=== PATIENT | female | born 1985 | race Caucasian/White ===

== ENCOUNTER 2018-09-15 07:38 | Outpatient (RCR) | payer BC, SELFPAY ==
--- NOTE | 2018-09-15 08:49 | HMH.PTOPEV ---
PT Outpatient Evaluation Rehab PT Outpatient Evaluation Start: 09/15/18 08:02 Freq: Status: Active Protocol: Document 09/15/18 08:43 PHOCINTIA (Rec: 09/15/18 08:49 PHORNE [id number]) Electronically Signed By Neal Chicas, PT 09/15/18 08:43 Outpatient Therapy Subjective History Subjective History Pt is 32 yowf who presents with c/o left side low back pain x ~ 2 wks with some pain noted in the left LE to mid thigh distally. She reports she slipped in her garage and twisted to catch herself which resulted in her symptoms. She was prescribed muscle relaxers and anti-inflammatory meds which has helped her symptoms significantly. She reports increased pain with prolonged standing, but not constant and no numbness or tingling. PMH: none significant. Chief Complaint Pain Symptom Type Ache Sharp Dull Symptoms Relieved By Rest/Positioning Symptoms Aggravated By Standing Prior Functional Limitations None Current Functional Limitations Standing Symptom Description Intermittent Activity Dependent Level of pain today (0-10) 2 Pain scale - at its worst (0-10) 6 Lumbopelvic Eval Palapation tenderness left buttock tenderness Yes: left SI and piriformis Lumbar/Sacral Palpation Findings Tenderness Range of Motion Lumbar Spine ROM Reason Not Measured Within Functional Limits Manual Muscle Test Bilateral Knee Extension Strength Grade 5 Normal Knee Flexion Strength Grade 5 Normal Hip Flexion Strength Grade 5 Normal Hip Abduction Strength Grade 5 Normal Hip Adduction Strength Grade 5 Normal Hip External Rotation Strength Grade 5 Normal Hip Internal Rotation Strength Grade 5 Normal Hip Extension Strength Grade 5 Normal Ankle Dorsiflexion Strength Grade 5 Normal Gastronemius/Soleus Strength Grade 5 Normal DTR Rt Patellar 2+ Lt Patellar 2+ Rt Gastroc/Soleus 2+ Lt Gastroc/Soleus 2+ Special Tests Hip Scouring (Quadrant) Test Negative Left Negative Right Hip Keyur (MARTHA) Test Negative Left Negative Right Reverse Sciatic Nerve Tension Test Negative Righ
== END 2018-09-15 08:00 | disposition home or self-care (01) ==
LOC: PT 07:38
PROVIDERS: Visit Provider Family Medicine
DX: M54.9 Dorsalgia, unspecified (principal)
CPT/HCPCS: 97010; 97014; 97033; 97035; 97110; 97140; 97163; G0283

== ENCOUNTER → 2019-04-02 10:57 | Outpatient (CLI) | payer BC, SELFPAY ==
--- NOTE | 2019-04-02 11:13 | XR_ITS ---
EXAM: XR lumbar spine min 4V HISTORY: ITS.REASON: BACK STRAIN ORDERING PHYSICIAN: Belinda Murphy APRN PATIENT AGE: 33 years COMPARISON: None FINDINGS: Normal alignment. No fracture or dislocation. No lytic or blastic change. No significant degenerative change. The disc spaces are preserved. IMPRESSION: No acute finding
== END ==
PROVIDERS: PCP Nurse Practitioner Family; Visit Provider Nurse Practitioner Family
DX: S39.012A Strain of muscle, fascia and tendon of lower back, initial encounter (principal)
CPT/HCPCS: 72110

== ENCOUNTER 2019-04-17 14:00 | Outpatient (RCR) | payer BC, SELFPAY ==
--- NOTE | 2019-04-09 09:51 | HMH.PTOPEV ---
PT Outpatient Evaluation Rehab PT Outpatient Evaluation Start: 04/09/19 09:40 Freq: Status: Active Protocol: Document 04/09/19 09:41 PHOCINTIA (Rec: 04/09/19 09:50 PHORBRIDGETTE [id number]) Electronically Signed By Neal Chicas, PT 04/09/19 09:41 Outpatient Therapy Subjective History Subjective History Pt is 33 yowf who presents with c/o pain in left low back /posterior hip with radicular symptoms moving down the left LE to the knee distally. Pt had prior episode of similar symptoms ~ 8 mos ago which was completely resolved. She reports recently moving a mattress and box springs up a set of stairs which caused a slow, steady return of her symptoms which are also aggravated by the physical demands of her job. She reports no pain at rest, but pain is increased with prolonged walking and transfers after prolonged sitting. No significant PMH and X-rays of lumbar spine were negative for pathology. Chief Complaint Pain,Stiff Symptom Type Ache,Sharp,Stabbing,Burning, Shooting Symptoms Relieved By Rest/Positioning Symptoms Aggravated By Twisting,Walking Prior Functional Limitations None Current Functional Limitations Reaching,Walking Symptom Description Intermittent,Activity Dependent Level of pain today (0-10) 0 Pain scale - at its worst (0-10) 5 Lumbopelvic Eval Palapation tenderness left buttock tenderness Yes Lumbar/Sacral Palpation Findings Tenderness Lumbar/Sacral Palpation Overall Comment piriformis and left SI Range of Motion Lumbar Spine Active Flexion Range of 0-65 Motion (degrees) Lumbar Spine Active Extension Range of 0-20 Motion (degrees) Left Lumbar Spine Lateral Flexion Active 0-20 Range of Motion (degrees) Right Lumbar Spine Lateral Flexion 0-20 Active Range of Motion (degrees) Manual Muscle Test Bilateral Knee Extension Strength Grade 5 Normal Knee Flexion Strength Grade 5 Normal Hip Flexion Strength Grade 5 Normal Hip Abduction Strength Grade 5 Normal Hip Adduction Strength Grade 5 Normal Hip External Rotation Strength Grade 5 Normal Hip Internal Ro
== END 2019-04-17 14:05 | disposition home or self-care (01) ==
LOC: PT 14:00
PROVIDERS: Visit Provider Nurse Practitioner Family
DX: S39.012A Strain of muscle, fascia and tendon of lower back, initial encounter (principal)
CPT/HCPCS: 97010; 97014; 97035; 97110; 97140; 97163; G0283

== ENCOUNTER → 2020-06-12 07:37 | Outpatient (CLI) | payer BC, SELFPAY ==
--- NOTE | 2020-06-12 07:46 | US_ITS ---
PROCEDURE: US ABDOMEN LIMITED CLINICAL INDICATION: ELEVATED BILIRUBIN COMPARISON: No exams were available for comparison FINDINGS: PANCREAS: Unremarkable. No obvious mass or abnormal fluid collection. No ductal dilatation LIVER: No focal liver lesions demonstrated. Homogeneous echogenicity. No intrahepatic biliary ductal dilatation evident. There is appropriate direction of blood flow within a non dilated portal vein RIGHT KIDNEY: Unremarkable. Normal size and echogenicity. The right kidney measures 10.1 x 4.4 by 6.7 cm. No hydronephrosis GALLBLADDER: No gallstones, gallbladder wall thickening, pericholecystic fluid, or biliary dilatation. There is a small amount of biliary sludge seen. IMPRESSION: Small amount of biliary sludge otherwise unremarkable ultrasound abdomen limited Dictated by: Dr. Romero Saldana MD 06/12/2020 13:18 Dr. Romero Saldana MD in [place] 06/12/2020 13:18
== END ==
PROVIDERS: PCP Nurse Practitioner Family; Visit Provider Nurse Practitioner Family
DX: R17 Unspecified jaundice (principal)
CPT/HCPCS: 76705

== ENCOUNTER → 2021-01-07 12:30 | Outpatient (CLI) | payer BC, SELFPAY ==
[2021-01-07 13:11] LABS: Adenovirus,PCR Not Detected (NotDetected); Bordetella Pertussis Not Detected (NotDetected); Chlamydophila Pneumoniae, PCR Not Detected (NotDetected); Coronavirus 19, PCR Not Detected (NotDetected); Coronavirus 229E Not Detected (NotDetected); Coronavirus NL63 Not Detected (NotDetected); Coronavirus OC43 Not Detected (NotDetected); Coronovirus HKU1,PCR Not Detected (NotDetected); Human Metapneumovirus Not Detected (NotDetected); Influenza A, PCR Not Detected (NotDetected); Influenza AH1, 2009 Not Detected (NotDetected); Influenza AH1, PCR Not Detected (NotDetected); Influenza AH3,PCR Not Detected (NotDetected); Influenza B, PCR Not Detected (NotDetected); Mycoplasma Pneumoniae, PCR Not Detected (NotDetected); Parainfluenza 1, PCR Not Detected (NotDetected); Parainfluenza 2, PCR Not Detected (NotDetected); Parainfluenza 3, PCR Not Detected (NotDetected); Parainfluenza 4, PCR Not Detected (NotDetected); Respiratory Syncytial Virus Not Detected (NotDetected)
[2021-01-07 13:20] LABS: Basophils % 0.4 % (0.1-2.0); Eosinophils # 0.1 K/mm3 (0.0-0.4); Eosinophils % 0.8 % (0.1-12.0); Hematocrit 40.7 % (37.0-47.0); Hemoglobin 13.5 g/dL (12.2-16.2); Lymphocytes # 2.5 K/mm3 (0.7-4.5); Lymphocytes % 26.1 % (10-50); Mean Corpuscular HGB Conc 33.2 g/dL (31.8-35.4); Mean Corpuscular Hemoglobin 30.7 pg (27.0-31.2); Mean Corpuscular Volume 92.7 fl (81-99); Mean Platelet Volume 7.5 fl (7.4-10.4); Monocytes # 0.6 K/mm3 (0.1-1.0); Monocytes % 6.5 % (1.7-9.3); Neutrophils # 6.2 K/mm3 (1.8-7.8); Neutrophils % 66.2 % (37.0-80.0); Platelet Count 271 K/mm3 (142-424); Red Blood Count 4.39 M/mm3 (4.20-5.40); White Blood Count 9.4 K/mm3 (4.8-10.8)
[2021-01-07 19:29] LABS: Rhinovirus/Enterovirus Detected (NotDetected)
== END ==
PROVIDERS: PCP Nurse Practitioner Family; Visit Provider Nurse Practitioner Family
DX: Z20.822 Contact with and (suspected) exposure to COVID-19 (principal); B34.1 Enterovirus infection, unspecified
CPT/HCPCS: 36415; 85025; 87581; 87633; 87798

== ENCOUNTER → 2021-02-09 15:40 | Outpatient (CLI) | payer BC, SELFPAY ==
--- NOTE | 2021-02-09 15:43 | MR_ITS ---
PROCEDURE: MR LUMBAR SPINE WO CON CLINICAL INDICATION: ACUTE MIDLINE LOW BACK PAIN Lt sided LBP. Pain down lt leg to knee. Symptoms xyrs. No injury or trauma. COMPARISON: No exams were available for comparison TECHNIQUE: Standard multiplanar multiecho sequences are performed without contrast. 3-D MIP and myelographic images are also rendered and reviewed FINDINGS: There is normal alignment. There is straightening of the lumbar lordosis which may be due to patient positioning or muscle spasm. Spinal cord ends at the L1-L2 level. T12-L1, L1-L2, L2-L3, L3-L4, and L4-5 have an unremarkable appearance. L5-S1: Minimal retrolisthesis of L5 of 3 mm with bulging disc and a small broad-based central disc protrusion slightly eccentric toward the left. This abuts the anterior medial aspect of the S1 nerve roots without significant impingement. There is mild bilateral lateral recess narrowing left greater than right and mild left foraminal narrowing. No extruded herniated disc or bony canal stenosis. Numerous small follicles are present involving the left ovary. IMPRESSION: 1. Minimal retrolisthesis of L5 of 3 mm with bulging disc and a small broad-based central disc protrusion slightly eccentric toward the left. This abuts the anterior medial aspect of the S1 nerve roots without significant impingement. There is mild bilateral lateral recess narrowing left greater than right and mild left foraminal narrowing. 2. No extruded herniated disc or bony canal stenosis Dictated by: Louis Dunlap MD 02/10/2021 11:43 Louis Dunlap MD in [place] 02/10/2021 11:43
== END ==
PROVIDERS: PCP Nurse Practitioner Family; Visit Provider Physician Assistant
DX: M54.42 Lumbago with sciatica, left side (principal); R29.898 Other symptoms and signs involving the musculoskeletal system
CPT/HCPCS: 72148; 76376

== ENCOUNTER 2025-10-07 11:30 | Emergency (ER) | payer BC, SELFPAY ==
[2025-10-07 11:43] VITALS: BP 134/82; PULSE 79; RESP 16; TEMP 36.4; O2SAT 100; BMI 24.4
--- OUTSIDE RECORDS SUMMARY | 2025-10-07 11:51 | XMS_ITS | Clinical Summary ---
Author Organization [facility] Address [address] [place] [address] Phone Care Team Providers Care Reimbursement Rep Name Role Phone Unavailable Primary Care Provider Unavailabl e Allergies No known active allergies Medications No known medications Active Problems No known active problems Encounters Date Type Department Care Team Description 07/18/2025 8:53 AM EDT - 07/18/2025 11:59 PM EDT Hospital Encounter [facility] [place] [address] Trish Kathleen PA-C Abnormal mammogram of both breasts Discharge Disposition: Home or Self Care 07/18/2025 8:52 AM EDT Hospital Encounter [facility] [place] [address] Trish Kathleen PA-C Abnormal mammogram (Primary Dx) Discharge Disposition: Home or Self Care 07/18/[address] [facility] [place] [address] Sanaz Jama, Clerical Staff Appointment Needed 07/15/[address] [facility] [place] [address] Sanaz Jama, Clerical Staff Abnormal Radiology 07/11/2025 11:14 AM EDT - 07/11/2025 11:59 PM EDT [facility] [place] [address] Trish Kathleen PA-C Encounter for screening mammogram for malignant neoplasm of breast Discharge Disposition: Home or Self Care from Last 3 Months Social History Tobacco Use Types Packs/Day Years Used Date Smoking Tobacco: Never Smokeless Tobacco: Never Tobacco Cessation:Counseling Given: Not Answered Comments No Sex and Gender Information Value Date Recorded Sex Assigned at Not on file Legal Sex Female 8:06 AM EDT Gender Identity Not on file Sexual Orientation Not on file Obstetrics History Para Term AB IAB SAB Ectopic Multiple Livin g Live Births 2 Last Filed Vital Signs Vital Sign Reading Time Taken Comments Blood Pressure - - Pulse - - Temperature - - Respiratory Rate - - Oxygen Saturation - - Inhaled Oxygen Concentration - - Weight 81.6 kg (180 lb) 07/11/2025 11:15 AM EDT Height 182.9 cm (6') 07/11/2025 11:15 AM EDT Body Mass Index 24.41 07/11/2025 11:15 AM EDT Plan of Treatment Upcoming Encounters Date Type Department Care Team (Late st Contact Info) Description 01/14/2026 1:30 PM EDT Appointment [facility] [place] [address] Trish Kathleen PA-C [address] [place] [address] DR LOWRY [address] [place] [address] 01/14/2026 2:00 PM EDT Appointment [facility] [place] [id number] Trish Kathleen PA-C [address] [place] [address] [address] [place] [address] Health Maintenance Due Date Last Done Comments Annual Wellness Exam 1986 DTaP/TDaP/Td (1 - Tdap) 2002 Hepatitis B Vaccine (1 of 3 - 19+ 3-dose series) 2002 Cervical Cancer Screening 2004 Pap Smear 2004 HPV/Pap Cotest 2013 COVID-19 Vaccine (2024-2 6 season) 2025 09/15/2021, 01/27/2021, 12/24/2020 Influenza Vaccine (#1) 2025 07/20/2022 Breast Cancer Screening 07/11/2027 07/11/2025 Meningococcal B Vaccine Aged Out No l onger eligible based on patient's age to complete this topic Pneumococcal Vaccine 0-49 Aged Out No longer eligible based on patient's age to complete this topic Procedures Procedure Name Priority Date/Time Associated Diagnosis Comments MM US BREAST LIMITED BILATERAL Routine 07/18/2025 9:26 AM EDT Abnormal mammogram of both breasts MM MAMMO DIGITAL MABEL SCREEN BILAT Routine 07/11/2025 11:21 AM EDT Encounter for screening mammogram for malignant neoplasm of breast from Last 3 Months Results * MM US BREAST LIMITED BILATERAL (07/18/2025 9:26 AM EDT) Anatomical Region Laterality Modality Breast Bilateral Ultrasound 07/18/2025 9:26 AM EDT Impressions 07/18/2025 9:32 AM EDT Probably Benign ([id number]) ASSESSMENT TEXT: RECOMMENDATION: Diagnostic Mammogram in 6 Months Right Breast Ultrasound in 6 Months Right COMMENTS: To reevaluate the probable fibroadenoma RIGHT 1:00 position DISCLAIMER *The patient was notified by MyChart or mail of the results for this examination. *The patient's information was entered into a reminder system with a target due date for the next breast imaging, in accordance with the [employer] and the Society of Breast Imaging recommendations. *Breast Imaging has a false negative rate of 15%. *Any patient with a palpable abnormality, unexplained by breast imaging, should be managed on a clinical basis by the attending physician. Narrative 07/18/2025 9:32 AM EDT EXAM: MM US BREAST LIMITED BILATERAL EXAM DATE: 07/18/2025 9:26 AM INDICATION: R92.8-Other abnormal and inconclusive findings on diagnostic imaging of [id number] COMPARISON STUDIES: Compared with prior studies the most recent being 07/11/2025 MM MAMMO DIGITAL MABEL SCREEN BILAT at [facility] FINDINGS: Sonographic evaluation is performed bilaterally. There are numerous cyst. On the RIGHT there is a simple cyst measuring 7 mm at the 12:00 position and smaller subcentimeter cyst of the RIGHT 3:00 position. There is either a complex cyst or benign-appearing solid mass likely a fibroadenoma the RIGHT 1:00 position 4 cm from the nipple measuring 12 mm. Although solid this is very likely benign On the LEFT there is a minimally complex cyst in the retroareolar 12:00 region measuring 2.5 cm that has some floating internal debris but good through transmission. Procedure Note Jeff Short MD - 07/18/2025 EXAM: MM US BREAST LIMITED BILATERAL EXAM DATE: 07/18/2025 9:26 AM INDICATION: R92.8-Other abnormal and inconclusive findings on diagnosticimaging of [id number] COMPARISON STUDIES: Compared with prior studies the most recent being 07/11/2025 MM MAMMO DIGITAL MABEL SCREEN BILAT at [facility] FINDINGS: Sonographic evaluation is performed bilaterally. There are numerous cyst. On the RIGHT there is a simple cyst measuring 7mm at the 12:00 position and smaller subcentimeter cyst of the RIGHT 3:00position. There is either a complex cyst or benign-appearing solid mass likely a fibroadenoma the RIGHT 1:00 position 4 cm from the nipple measuring 12mm. Although solid this is very likely benign On the LEFT there is a minimally complex cyst in the retroareolar 12:00region measuring 2.5 cm that has some floating internal debris but good through transmission. IMPRESSION: Probably Benign ([id number]) ASSESSMENT TEXT: RECOMMENDATION: Diagnostic Mammogram in 6 Months Right Breast Ultrasound in 6 Months Right COMMENTS: To reevaluate the probable fibroadenoma RIGHT 1:00 position DISCLAIMER *The patient was notified by MyChart or mail of the results for this examination. *The patient's information was entered into a reminder system with atarget due date for the next breast imaging, in accordance with the [employer] and the Society of Breast Imaging recommendations. *Breast Imaging has a false negative rate of 15%. *Any patient with a palpable abnormality, unexplained by breast imaging,should be managed on a clinical basis by the attending physician. us Trish Kathleen PA-C IMG MAMMOGRAPHY ORDERABLES Fi nal Result * (ABNORMAL) MM MAMMO DIGITAL MABEL SCREEN BILAT (07/11/2025 11:21 AM EDT) Anatomical Region Laterality Modality Breast Bilateral Mammography 07/11/2025 11:2 1 AM EDT Impressions 07/12/2025 9:14 AM EDT Incomplete: Need additional imaging evaluation ([id number]) RECOMMENDATION: Additional Imaging Breast Ultrasound Bilateral COMMENTS:Ultrasound within one month. . . . DISCLAIMER *The patient was notified by MyChart or mail of the results for this examination. *The patient's information was entered into a reminder system with a target due date for the next breast imaging, in accordance with the [employer] and the Society of Breast Imaging recommendations. *Breast Imaging has a false negative rate of 15%. *Any patient with a palpable abnormality, unexplained by breast imaging, should be managed on a clinical basis by the attending physician. Narrative 07/12/2025 9:14 AM EDT EXAM: MM MAMMO DIGITAL MABEL SCREEN BILAT EXAM DATE: 07/11/2025 11:21 AM INDICATION: Z12.31-Encounter for screening mammogram for malignant neoplasm of [id number] COMPARISON STUDIES: Baseline TISSUE DENSITY: The breasts are extremely dense, which lowers the sensitivity of mammography. FINDINGS: Multiple bilateral circumscribed masses suggestive of a cystic pattern. Two of these circumscribed masses are dominant, an approximately 2.5 cm mass in the mid to posterior 3:00 retroareolar RIGHT breast and an approximately 2 cm mass in the anterior 12:00 to 1:00 LEFT breast. No suspicious microcalcifications. Procedure Note Naomy Millan MD - 07/12/2025 EXAM: MM MAMMO DIGITAL MABEL SCREEN BILAT EXAM DATE: 07/11/2025 11:21 AM INDICATION: Z12.31-Encounter for screening mammogram for malignantneoplasm of [id number] COMPARISON STUDIES: Baseline TISSUE DENSITY: The breasts are extremely dense, which lowers thesensitivity of mammography. FINDINGS: Multiple bilateral circumscribed masses suggestive of a cystic pattern. Two of these circumscribed masses are dominant, an approximately2.5 cm mass in the mid to posterior 3:00 retroareolar RIGHT breast and anapproximately 2 cm mass in the anterior 12:00 to 1:00 LEFT breast. No suspicious microcalcifications. IMPRESSION: Incomplete: Need additional imaging evaluation ([id number]) RECOMMENDATION: Additional Imaging Breast Ultrasound Bilateral COMMENTS:Ultrasound within one month. . . . DISCLAIMER *The patient was notified by MyChart or mail of the results for this examination. *The patient's information was entered into a reminder system with atarget due date for the next breast imaging, in accordance with the [employer] and the Society of Breast Imaging recommendations. *Breast Imaging has a false negative rate of 15%. *Any patient with a palpable abnormality, unexplained by breast imaging,should be managed on a clinical basis by the attending physician. Trish Kathleen PA-C IMNancy MAMMOGRAPHY ORDERABLES Fi nal Result from Last 3 Months [facility] [place] [id number]
--- OUTSIDE RECORDS SUMMARY | 2025-10-07 11:51 | XMS_ITS | Clinical Summary ---
Author Organization [facility] Address [address] [place] [address] Phone [email or web address] Care Team Providers Care Armature Coil Winder Name Role Phone Bridget Kramer Primary Care Provider [phone] Allergies No known active allergies Medications No known medications Active Problems Problem Noted Date Diagnosed Date Immunization due 09/15/2021 Overview (09/16/2021): Charmaine العلي is a 35 y.o. female who [facility] for COVID-19 immunization(s) ordered by Health [facility] provider . See Immunization activity for required documentation. Post-treatment monitoring done per protocol. Patient observed for adverse reactions for 15 minutes. Adverse reaction(s): None Immunizations Immunization Administration Dates Next Due Covid-19 (Moderna Flathead, 12yrs+) (CVX-207) 2020,01/27/2021,12/24/2020 Social History Tobacco Use Types Packs/Day Years Used Date Smoking Tobacco: Never Smokeless Tobacco: Never Intimate Partner Violence Answer Date R ecorded Insults You Not on file 01/21/2021 Threatens You Not on file 01/21/2021 Screams at You Not on file 01/21/2021 Physically Hurt Not on file 01/21/2021 Intimate Partner Violence Score Not on file 01/21/2021 Depression Answer Date Recorded PHQ Total Score 0 06/11/2025 Stress Answer Date Recorded Stress in your Life Not on file 08/13/2024 Dealing with Stress 3 08/13/2024 Comments No Sex and Gender Information Value Date Recorded Sex Assigned at Not on file Legal Sex Female 9:20 AM CDT Gender Identity Not on file Sexual Orientation Not on file Last Filed Vital Signs Vital Sign Reading Time Taken Comments Blood Pressure 111/77 06/11/2025 5:36 AM EDT Pulse 83 06/11/2025 5:36 AM EDT Temperature 37 C (98.6 F) 12/21/2021 6:09 AM EDT Respiratory Rate 16 06/11/2025 5:36 AM EDT Oxygen Saturation 97% 06/11/2025 5:36 AM EDT Inhaled Oxygen Concentration - - Weight 81.2 kg (179 lb) 08/27/2024 9:00 PM EST Height 182.9 cm (6') 08/27/2024 9:00 PM EST Body Mass Index 24.28 08/27/2024 9:00 PM EST Plan of Treatment Health Maintenance Due Date Last Done Comments Cervical Cancer Screening Combo 1983 Dental Cleaning/Exam 1983 HIV Screening 1983 HPV only / HPV + Pap 1983 Hepatitis C Screening 1983 Pap only testing 1983 HPV Immunization (1 - 2-dose series) 1994 Annual Preventive Exam 2001 Hep B Infection Screening - Triple Screen 2001 Hepatitis B Immunization (1 of 3 - 19+ 3-dose series) 2002 Tetanus Diphtheria and Pertussis Immunization (1 - Tdap) 2002 Breast Cancer Screening 2013 Covid-19 Immunization ( season) 2025 09/15/2021, 01/27/2021, 12/24/2020 Influenza Immunization (#1) 2025 07/20/2022 HIB Immunization Aged Out No longer e ligible based on patient's age to complete this topic Hepatitis A Immunization Aged Out No longer eligible based on patient's age to complete this topic Pneumococcal Immunization Aged Out No longer eligible based on patient's age to complete this topic Polio Immunization Aged Out No longer eligible based on patient's age to complete this topic Varicella Immunization Aged Out No lo nger eligible based on patient's age to complete this topic Insurance [id number] [place] [address] Care Teams Armature Coil Winder Relationship Specialty Start Date End Date Bridget Kramer [address] [place] [address] PCP - General Sawmill Tally Clerk 09/29/20
--- NOTE | 2025-10-07 11:53 | XR_ITS ---
FINAL REPORT CLINICAL HISTORY: mid foot lateral injury FINDINGS: AP, oblique and lateral views of the right foot were obtained. There is no prior exam for comparison. There is a nondisplaced fracture of the base of the 5th metatarsal. No other fracture identified. The joint spaces are preserved. Mild lateral soft tissue edema noted. IMPRESSION: Fifth metatarsal fracture with soft tissue edema. Reviewed, Interpreted and Dictated by Chantal Frias MD Transcribed by Mary Bazan Authenticated and [facility]
--- NOTE | 2025-10-07 12:00 | [facility].EDGENADL ---
Discharge Plan Disposition Patient Disposition: Home, Self-Care Prescriptions Prescriptions: New hydrocodone-acetaminophen 5-325 mg tablet 1 tab PO Q6H PRN (Reason: pain) 3 Days Qty: 12 0RF Referrals Follow up/Referrals: Belinda Murphy APRN [Primary Care Provider, Medical] - See instructions Activity Restrictions/Add. Instructions Additional Instructions/Restrictions: You have a right fifth metatarsal fracture at the junction of the epiphysis and diaphysis consistent with what we call a Kear[place] fracture. This fracture has a high risk of nonunion if not treated nonoperatively with nonweightbearing status. Therefore please wear your walking boot and use your crutches but be nonweightbearing and follow-up with orthopedic surgery within 1 week. Do not bear weight until advised by Dr. Florence. Clinical Impressions Clinical Impression: K[place] fracture Print Language Print Language: [place] Discharge ED Provider: Kenroy Winter General Adult HPI General Chief complaint: Extremity Injury, Lower Stated complaint: AO-10/06/25- fall, Pain, swelling, bruising R foot Time Seen by Provider: 10/07/25 11:49 Mode of Arrival: Ambulatory Source of Information: Patient Description of Symptoms (Recalled from ER Triage Doc. by RN): PT fell on her wooden steps yesterday around 1730 and injured her right foot. PT states she is having trouble putting weight on the foot. Upon assesment the foot is swollen and bruised, but pedal pulses are strong. History of Present Illness HPI narrative: Patient is a 39-year-old female presents today after an injury falling down stairs. This happened yesterday she had an inversion injury and pain and swelling in the mid lateral aspect of her foot since that time. Difficulty bearing weight but no injuries elsewhere. Related Data Previous Rx's ?Medication ?Instructions ?Recorded hydrocodone 5 mg-acetaminophen 325 1 tab PO Q6H PRN pain 3 days #12 10/07/25 mg tablet tabs Allergies Allergy/AdvReac Type Severity Reaction Status Date / Time No Known Allergies Allergy Verified 10/07/25 12:12 [facility] Disclaimer: The information contained in this section may have been updated after the patient was seen, as this information can be updated by other users. Social History Smoking Status: Never smoker alcohol intake: never current occupational status: other Travel in the last 8 weeks?: None ROS Obtained: Yes All systems reviewed & no additional complaints except as documented Physical Exam General General appearance: alert and in no apparent distress Respiratory Respiratory exam: Present normal lung sounds bilaterally Cardiovascular Cardiovascular exam: Present regular rate and normal rhythm Extremities Exam Extremities exam: Present other (No pain with compression of tib-fib or proximal ankle or foot there is significant pain and swelling and ecchymosis over the lateral forefoot at the base of the fifth metatarsal) Neurological Exam Neurological exam: Present alert and oriented X3 Medical Decision Making Medical Records Screening: Per USPSTF and CDC recommendations, given the prevalence of disease in our region, it is our hospital?s policy to screen for HIV and viral Hepatitis for all patients aged 18 and over and those with ongoing risk factors. Shaq Inquiry Pt receiving controlled substance: No Vital Signs: 10/07/25 11:43 Temperature 97.6 F Temperature Source Oral Pulse Rate [Right] 79 Respiratory Rate 16 Blood Pressure [Right Arm] 134/82 Blood Pressure Mean [Right Arm] 99 Blood Pressure Source [Right Arm] Automatic Cuff Blood Pressure Position [Right Arm] Sitting 02 Sat by Pulse Oximetry 100 Oxygen Delivery Method Room Air Orders (Tests/Meds): ORDERS Category Date Time Status Foot XR right minimum 3 views [XR foot RT min 3V] Stat Exams 10/07/25 11:53 Taken Medical Decision Narrative: 39-year-old with above history and physical differential initially included fracture dislocation sprain etc. X-rays were performed which I personally interpreted shows a fracture line in zone 2 at the junction of the epiphysis and diaphysis consistent with a [place] fracture which has a high rate of nonunion if not treated aggressively in a nonoperative nonweightbearing fashion. Walking boot and crutches were provided the patient she was been informed to stay nonweightbearing until followed up with Dr. Florence. Pain medicine sent to her pharmacy return precautions emphasized patient discharged in stable condition. Critical Care Critical Care Time Critical Care Time: No
[2025-10-07 12:32] VITALS: BP 118/79; PULSE 84; RESP 16; TEMP 36.4; O2SAT 100
== END 2025-10-07 12:34 | disposition home or self-care (01) ==
PROVIDERS: Emergency Provider Student in an Organized Health Care Education/Training Program; PCP Nurse Practitioner Family
DX: S92.351A Displaced fracture of fifth metatarsal bone, right foot, initial encounter for closed fracture (principal); W10.9XXA Fall (on) (from) unspecified stairs and steps, initial encounter
CPT/HCPCS: 73630; 99283